=== PATIENT | male | born 1935 | race Caucasian/White ===

== ENCOUNTER 2016-03-03 10:51 | Outpatient (CLI) ==
--- NOTE | 2016-03-03 11:48 | DI ---
EXAM: Five views of the lumbar spine. History: Lower back pain. Findings / impression: Cholecystectomy clips. 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 3.6 cm infrarenal abdominal aortic aneurysm. Grade II anterolisthesis of L5 on S1. Se jasson disc space narrowing at L5-S1. Mild retrolisthesis of L3 on L4. Severe disc space narrowing a t L2-L3 and moderate disc space narrowing at L1-L2. Severe facet hypertrophy within the lower lumba r spine. No fractures identified.
== END 2016-03-03 10:52 | disposition home or self-care (01) ==
LOC: RAD 10:51
PROVIDERS: ATTEND Family Medicine
DX: M19.90 Unspecified osteoarthritis, unspecified site (principal)

== ENCOUNTER 2016-03-04 07:29 | Outpatient (CLI) ==
--- NOTE | 2016-03-04 08:00 | US ---
EXAM: Ultrasound Aorta HISTORY: Aortic aneurysm COMPARISON: CT 12/18/2012 TECHNIQUE: Ultrasound aorta was performed. FINDINGS: Atherosclerosis Measurements are AP by transverse. Proximal aorta: 2.7 x 2.8 cm Mid aorta: 2.1 x 2.4 cm Distal aorta: Infrarenal abdominal aortic aneurysm measuring up to 2.8 x 3.1 cm Right iliac: 1.6 x 1.8 cm Left iliac: 1.4 x 2.3 cm IMPRESSION: Infrarenal abdominal aortic aneurysm measuring up to 3.1 cm. Right iliac artery measure s up to 1.8 cm and left iliac artery measures up to 2.3 cm, though left is probably overestimated du e to tortuous vessel.
== END 2016-03-04 07:30 | disposition home or self-care (01) ==
LOC: RAD 07:29
PROVIDERS: ATTEND Family Medicine
DX: I71.4 Abdominal aortic aneurysm, without rupture (principal)
CPT/HCPCS: 76775